=== PATIENT | male | born 1990 | race African-American/Black ===

== ENCOUNTER 2017-07-22 12:46 | Emergency (ER) | payer OTHER ==
[2017-07-22] MEDS: cefTRIAXone SOD 250 MG VIAL (J0696) IM (13:49)
[2017-07-22] MEDS: AZITHROMYCIN 250 MG TAB PO (13:49)
[2017-07-22 16:54] LABS: CHLAMYDIA DNA AMPLIFICATION POSITIVE (NEGATIVE); GC DNA AMPLIFICATION NEGATIVE (NEGATIVE)
[2017-07-24 10:21] LABS: HEPATITIS B SURFACE ANTIBODY POSITIVE (POSITIVE)
[2017-07-24 10:31] LABS: HEPATITIS B SURFACE ANTIGEN NEGATIVE (NEGATIVE)
[2017-07-24 10:59] LABS: HIV 1&2 SCREEN CENTAUR NEGATIVE (NEGATIVE)
== END 2017-07-22 14:36 | disposition home or self-care (01) ==
LOC: M ED 12:46
DX: N34.2 Other urethritis (principal)
CPT/HCPCS: J0696

== ENCOUNTER 2017-11-22 19:28 | Emergency (ER) | payer OTHER ==
[2017-11-22] MEDS: cefTRIAXone SOD 250 MG VIAL (J0696) IM (21:15)
[2017-11-22] MEDS: AZITHROMYCIN 250 MG TAB PO (21:15)
[2017-11-22] MEDS ORDERED: LIDOCAINE 1% MDV 20ML VIAL As Ordered (21:20)
[2017-11-22 22:30] LABS: KETONE, URINE AUTO RFX NEGATIVE (NEGATIVE); NITRITE, URINE AUTO RFX NEGATIVE (NEGATIVE); RBC, URINE AUTO RFX 3 /HPF (0-3); SPECIFIC GRAVITY UR AUTO RFX 1.014 (1.002-1.035); SQUAM EPITHELIAL CELL UR AURFX 0 /HPF (0-6); WBC, URINE AUTO RFX 4 /HPF (0-3)
[2017-11-22 22:55] LABS: LEUKOCYTE ESTERASE UR AUTO RFX 1+ (NEGATIVE)
[2017-11-22 23:31] LABS: HIV 1&2 SCREEN CENTAUR NEGATIVE (NEGATIVE)
[2017-11-22 23:52] LABS: CHLAMYDIA DNA AMPLIFICATION NEGATIVE (NEGATIVE); GC DNA AMPLIFICATION NEGATIVE (NEGATIVE)
[2017-11-24 11:18] LABS: HEPATITIS B SURFACE ANTIBODY POSITIVE (POSITIVE)
[2017-11-24 11:49] LABS: HEPATITIS B SURFACE ANTIGEN NEGATIVE (NEGATIVE)
== END 2017-11-22 23:33 | disposition home or self-care (01) ==
LOC: M ED 19:28
DX: Z20.2 Contact with and (suspected) exposure to infections with a predominantly sexual mode of transmission (principal); R30.0 Dysuria
CPT/HCPCS: J0696